=== PATIENT | male | born 1970 | race Caucasian/White ===

== ENCOUNTER 2017-08-18 11:37 | Emergency (ER) | payer OTHER ==
--- NOTE | 2017-08-18 12:50 | RAD ---
RIGHT ANKLE 3 VIEWS: Date: 08/18/17 HISTORY: Twisted ankle at work. COMPARISON: None. FINDINGS: There are some ossicles around the expected location of the superficial and deep deltoid ligament. Th ere is mild bimalleolar edema. No acute displaced fracture appreciated. IMPRESSION: Chronic findings. No acute displaced fracture is appreciated. POS: [facility]
== END 2017-08-18 12:50 | disposition home or self-care (01) ==
LOC: NAV ERS 11:37
DX: S93.401A Sprain of unspecified ligament of right ankle, initial encounter (principal); J01.90 Acute sinusitis, unspecified; G43.909 Migraine, unspecified, not intractable, without status migrainosus; J45.909 Unspecified asthma, uncomplicated; K21.9 Gastro-esophageal reflux disease without esophagitis; Z79.899 Other long term (current) drug therapy; X50.1XXA Overexertion from prolonged static or awkward postures, initial encounter; Y99.0 Civilian activity done for income or pay
CPT/HCPCS: 99001

== ENCOUNTER 2018-08-12 09:50 | Emergency (ER) | payer OTHER ==
[2018-08-12] MEDS ORDERED: predniSONE 20 MG TAB ONE (10:34)
[2018-08-12] MEDS ORDERED: Metoclopramide HCl 10 MG/2 ML VIAL ONE (10:34)
--- NOTE | 2018-08-12 10:41 | CT ---
CT BRAIN WITHOUT CONTRAST: History: Headache. FINDINGS: No evidence of infarct, hemorrhage, midline shift, or abnormal extraaxial fluid collections seen. The ventricular size is normal and the basilar cisterns patent. The bony calvarium is intact. The visual ized paranasal sinuses and mastoid air cells are well aerated. IMPRESSION: No CT evidence of acute intracranial process. POS: [facility]
== END 2018-08-12 10:57 | disposition home or self-care (01) ==
LOC: NAV ERS 09:50
DX: R51 Headache (principal); G43.909 Migraine, unspecified, not intractable, without status migrainosus; J45.909 Unspecified asthma, uncomplicated; K21.9 Gastro-esophageal reflux disease without esophagitis; F17.220 Nicotine dependence, chewing tobacco, uncomplicated; Z79.899 Other long term (current) drug therapy
CPT/HCPCS: 70450; 96372; J2765; J7506

== ENCOUNTER 2020-01-05 11:57 | Emergency (ER) | payer BC, OTHER ==
[2020-01-06 13:13] LABS: SARS-CoV-2 MS2 Positive; SARS-CoV-2 N Gene Negative; SARS-CoV-2 S Gene Negative; SARS-CoV-2 orf1ab Negative
== END 2020-01-05 13:12 | disposition home or self-care (01) ==
LOC: NAV ERS 11:57
DX: Z20.828 Contact with and (suspected) exposure to other viral communicable diseases (principal); E78.5 Hyperlipidemia, unspecified; E78.00 Pure hypercholesterolemia, unspecified; G40.909 Epilepsy, unspecified, not intractable, without status epilepticus; J45.909 Unspecified asthma, uncomplicated; K21.9 Gastro-esophageal reflux disease without esophagitis; F17.220 Nicotine dependence, chewing tobacco, uncomplicated; Z79.51 Long term (current) use of inhaled steroids; Z79.899 Other long term (current) drug therapy
CPT/HCPCS: 87635; 99283; U0003

== ENCOUNTER 2024-02-12 09:10 | Outpatient (CLI) | payer BC | END 2024-02-12 09:11 | disposition home or self-care (01) | LOC: NAV RAD 09:10 | PROVIDERS: ATTEND Nurse Practitioner Family | DX: M25.551 Pain in right hip (principal); M17.11 Unilateral primary osteoarthritis, right knee ==